=== PATIENT | female | born 1990 | race Two or more races ===

== ENCOUNTER 2019-09-01 22:47 | Emergency (ER) | payer SELFPAY ==
[~2019-09-01] VITALS: Ht 154.9 cm; Wt 90.7 kg
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
[2019-09-01] MEDS ORDERED: HYDROCODONE/APAP 10-325 MG TABLET PO ONE (23:15)
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
[2019-09-01] MEDS ORDERED: HYDROCODONE/APAP 10-325 MG TABLET ONE (23:19)
--- NOTE | 2019-09-01 23:25 | NUR ---
xray at bedside.
[2019-09-01 23:28] LABS: *URINE HCG, QUAL NEGATIVE (NEGATIVE)
--- NOTE | 2019-09-01 23:35 | NUR ---
pt taken to CT
[2019-09-01] MEDS ORDERED: HYDROMORPHONE 1 MG/1 ML DISP.SYRIN ONE (23:55)
[2019-09-01] MEDS ORDERED: ONDANSETRON 4 MG/2 ML VIAL ONE (23:55)
[2019-09-02] MEDS ORDERED: ONDANSETRON 4 MG/2 ML VIAL IM ONE
[2019-09-02] MEDS ORDERED: HYDROMORPHONE 1 MG/1 ML DISP.SYRIN IM ONE
--- NOTE | 2019-09-02 00:12 | NUR ---
Per Dr. Doyle, patient is stable for discharge. DC instructions and prescriptions given and reviewed with patient. Verbalized understanding. Per patient, her cousin Hawk will drive her home. Patient ambulated out of ER with steady gait in stable condition.
[2019-09-02 00:15] VITALS: BP 130/70
== END 2019-09-02 00:16 | disposition home or self-care (01) ==
LOC: ER 22:49
DX: S13.4XXA Sprain of ligaments of cervical spine, initial encounter (principal); S09.8XXA Other specified injuries of head, initial encounter; V09.9XXA Pedestrian injured in unspecified transport accident, initial encounter; Y93.89 Activity, other specified; Y92.89 Other specified places as the place of occurrence of the external cause; Y99.8 Other external cause status
CPT/HCPCS: 70450; 72100; 72125; 84703; 96372 ×2; 99285; J1170; J2405